=== PATIENT | male | born 1975 | race Two or more races ===

== ENCOUNTER 2021-03-31 21:11 | Inpatient (IN) | payer OTHER ==
[~2021-03-31] VITALS: Ht 188 cm; Wt 215.5 kg
[2021-03-31] MEDS ORDERED: MORPHINE SULFATE 4 MG/ML CPJ (NOT FOR IM USE) IV ONE (22:00)
[2021-03-31] MEDS ORDERED: ASPIRIN 325MG EC TABLET PO ONE (22:00)
[2021-03-31 22:30] LABS: BASOPHILS % 0.7 % (0.0-2.0); CHLORIDE 103 mEq/L (98-107); EOSINOPHILS % 3.1 % (0.0-5.0); HEMATOCRIT. 43.6 % (42.0-52.0); HEMOGLOBIN. 15.2 g/dL (14.0-18.0); LYMPHOCYTES % 23.9 % (20.0-50.0); MEAN CORPUSCULAR HEMOGLOBIN 32.6 pg (28.0-32.0); MEAN CORPUSCULAR VOLUME 93.3 fL (80.0-94.0); MEAN PLATELET VOLUME 8.9 fl (7.4-10.4); MONOCYTES % 7.4 % (2.0-8.0); NEUTROPHILS % 64.9 % (40.0-76.0); PLATELET 231 x1000/uL (130-400); RED BLOOD CELL COUNT 4.67 mill/uL (4.7-6.1); RED CELL DISTRIBUTION WIDTH 12.9 % (11.6-14.6)
[2021-03-31] MEDS ORDERED: MORPHINE SULFATE 4 MG/ML CPJ (NOT FOR IM USE) IV NR (22:30)
[2021-03-31 22:34] LABS: ETHANOL BLOOD < 10 mg/dL
[2021-04-01 00:11] LABS: *AMPHETAMINES SCREEN URINE NEGATIVE (NEGATIVE); *BARBITURATES SCREEN URINE NEGATIVE (NEGATIVE); *BENZODIAZEPINES SCREEN URINE NEGATIVE (NEGATIVE); *COCAINE SCREEN URINE NEGATIVE (NEGATIVE)
[2021-04-01 00:12] LABS: CANNABINOID URINE SCREEN NEGATIVE (NEGATIVE); METHADONE URINE SCREEN NEGATIVE (NEGATIVE); OPIATES URINE SCREEN PRESUMTIVE POSITIVE (NEGATIVE); PHENCYCLIDINE URINE SCREEN NEGATIVE (NEGATIVE)
[2021-04-01] MEDS ORDERED: ACETAMINOPHEN 325MG TABLET PO PRN (04:45)
[2021-04-01] MEDS ORDERED: HYDROCODONE/ACETAMINOPHEN 5/325MG TABLET PO PRN (04:45)
[2021-04-01] MEDS ORDERED: ONDANSETRON HCL 4MG/2ML INJ IV PRN (04:45)
[2021-04-01] MEDS ORDERED: DOCUSATE SODIUM 100MG CAPSULE PO PRN (04:45)
[2021-04-01] MEDS ORDERED: CLONIDINE 0.1MG TABLET PO PRN (04:45)
[2021-04-01] MEDS ORDERED: MAGNESIUM/ALUMINUM HYDROXIDE/SIMETHICONE 30ML UDC PO PRN (04:45)
[2021-04-01] MEDS ORDERED: KCL 10MEQ/50ML PREMIX 50 ML IV NR (05:00)
[2021-04-01] MEDS ORDERED: NALOXONE HCL 0.4MG/ML VIAL IV PRN (05:00)
[2021-04-01] MEDS ORDERED: DEXTROSE 50% WATER 50ML SYRINGE IV PRN ×2 (08:00)
[2021-04-01] MEDS: BLOOD SUGAR DIAGNOSTIC STRIP TEST SCH ×4 (08:00→20:41)
[2021-04-01] MEDS: INSULIN LISPRO 100 UNITS/ML SUBCUT SCH ×4 (08:00→20:47)
[2021-04-01 08:30] VITALS: BP 149/87
[2021-04-01 10:51] VITALS: BP 149/76
[2021-04-01] MEDS: METOPROLOL TARTRATE 25MG TABLET PO SCH ×2 (11:15→20:40)
[2021-04-01] MEDS: ASPIRIN 81MG EC TABLET PO SCH (11:15)
[2021-04-01] MEDS: ENOXAPARIN 40MG/0.4ML SYR SUBCUT SCH ×2 (11:15→20:41)
[2021-04-01 12:00] VITALS: BP 99/59
[2021-04-01 12:09] LABS: CHLORIDE 104 mEq/L (98-107)
[2021-04-01] MEDS ORDERED: REGADENOSON 0.4 MG/5 ML IV NR (13:00)
[2021-04-01] MEDS ORDERED: VALS1TAB76 MT (13:29)
[2021-04-01] MEDS ORDERED: METF-874 MT (13:30)
[2021-04-01 16:00] VITALS: BP 133/89
[2021-04-01 20:19] VITALS: BP 127/77
[2021-04-02] VITALS: BP 118/66
[2021-04-02 04:13] VITALS: BP 126/72
[2021-04-02 04:15] VITALS: BP 126/72
[2021-04-02] MEDS: BLOOD SUGAR DIAGNOSTIC STRIP TEST SCH (06:50)
[2021-04-02] MEDS: INSULIN LISPRO 100 UNITS/ML SUBCUT SCH (07:50)
[2021-04-02 08:00] VITALS: BP 111/59
[2021-04-02 08:36] VITALS: BP 111/59
[2021-04-02] MEDS: METOPROLOL TARTRATE 25MG TABLET PO SCH (09:00)
[2021-04-02] MEDS ORDERED: METFORMIN HCL 500MG TABLET PO SCH (09:00)
[2021-04-02] MEDS: ENOXAPARIN 40MG/0.4ML SYR SUBCUT SCH (09:00)
[2021-04-02] MEDS: ASPIRIN 81MG EC TABLET PO SCH (09:00)
[2021-04-02] MEDS ORDERED: REGADENOSON 0.4 MG/5 ML IV ONE (09:37)
[2021-04-02 11:32] VITALS: BP 111/59
== END 2021-04-02 12:26 | disposition home or self-care (01) | DRG 313 ==
LOC: ER 21:11 → MICUSO 04-01 00:24 → 6WST 04-01 07:38
PROVIDERS: ADMIT Hospitalist; ATTEND Hospitalist
DX: R07.89 Other chest pain (principal); Z68.44 Body mass index [BMI] 60.0-69.9, adult; E11.9 Type 2 diabetes mellitus without complications; I10 Essential (primary) hypertension; I16.0 Hypertensive urgency; R74.01 Elevation of levels of liver transaminase levels; E66.01 Morbid (severe) obesity due to excess calories; E87.6 Hypokalemia; Z20.822 Contact with and (suspected) exposure to COVID-19; Z88.1 Allergy status to other antibiotic agents; Z82.49 Family history of ischemic heart disease and other diseases of the circulatory system; Z83.3 Family history of diabetes mellitus
CPT/HCPCS: 36415; 71045; 78452; 80048; 80053; 80305; 80320; 82962; 83036; 83880; 84484; 85025; 87426; 93005; 93017; 93306; 93970; 99285; A9500; J1650; J2270; J2785; J3480; G0480